=== PATIENT | female | born 1995 | race Caucasian/White ===

== ENCOUNTER → 2025-02-21 10:24 | Outpatient (BNVA) | payer BC, SELFPAY | PROVIDERS: Visit Provider Internal Medicine Rheumatology | DX: M54.50 Low back pain, unspecified (principal); M06.00 Rheumatoid arthritis without rheumatoid factor, unspecified site; M79.672 Pain in left foot; M79.671 Pain in right foot; M47.896 Other spondylosis, lumbar region | CPT/HCPCS: 36415; 72100; 73630; 80076; 82085; 82306; 82550; 82565; 85025; 85651; 86140; 86200; 86431; 86480; 86704; 86803; 87340 ==

== ENCOUNTER → 2025-02-22 | Outpatient (BNVA) | payer BC, SELFPAY | PROVIDERS: Visit Provider Internal Medicine Rheumatology | DX: M06.00 Rheumatoid arthritis without rheumatoid factor, unspecified site (principal) | CPT/HCPCS: 83520 ==

== ENCOUNTER 2025-03-23 11:16 | Outpatient (CLI) | payer BC, SELFPAY ==
[2025-03-23 11:57] LABS: Hematocrit 38.9 % (36-47); Hemoglobin 13.20 g/dL (11.27-16.99); Mean Corpuscular HGB Conc 33.9 g/dL (30-55); Mean Corpuscular Hemoglobin 30.8 pg (27-33); Mean Corpuscular Volume 90.9 fl (85-98); Nucleated Red Blood Cells % 0 %; Platelet Count 247 10^3/cmm (157-399); Red Blood Count 4.28 10^6/uL (3.85-5.65); White Blood Count 5.67 10^3/uL (3.29-11.43)
[2025-03-23 12:19] LABS: Alanine Aminotransferase 16 U/L (0-33); Albumin Level 4.3 g/dL (3.5-5.2); Alkaline Phosphatase 46 U/L (35-105); Aspartate Amino Transferase 17 U/L (0-32); Globulin 3.1 g/dL (1.3-4.6); Total Protein 7.4 g/dL (6.6-8.7)
== END 2025-03-23 11:17 | disposition home or self-care (01) ==
LOC: LAB 11:17
PROVIDERS: PCP Internal Medicine Gastroenterology; Visit Provider Internal Medicine Rheumatology
DX: Z79.899 Other long term (current) drug therapy (principal)
CPT/HCPCS: 36415; 80076; 82565; 85025; 85651; 86140

== ENCOUNTER 2025-04-27 10:33 | Outpatient (CLI) | payer BC, MEDICAID, SELFPAY ==
--- NOTE | 2025-04-27 10:37 | XR_ITS ---
WS: [email or web address] XR hand LT min 3V* [id number] REASON FOR EXAM: M25.50 - Pain in unspecified joint FINDINGS: No fracture or focal bone lesion. No periosteal reaction or bone erosion. Joint spaces of the fingers and hand are intact and well preserved. XR/XR hand LT min 3V* [id number] IMPRESSION: No significant bone or joint abnormality.
--- NOTE | 2025-04-27 10:37 | XR_ITS ---
WS: [email or web address] XR wrist LT min 3V* [id number] REASON FOR EXAM: M25.50 - Pain in unspecified joint FINDINGS: No fracture or focal bone lesion. No bone erosion. Joint spaces of the wrist are intact and well preserved. Normal carpal bone alignment. XR/XR wrist LT min 3V* [id number] IMPRESSION: No significant bone or joint abnormality.
--- NOTE | 2025-04-27 10:37 | XR_ITS ---
WS: [email or web address] XR ankle LT min 3V* [id number] REASON FOR EXAM: M25.50 - Pain in unspecified joint FINDINGS: No fracture or focal bone lesion. The joint spaces of the ankle are intact and well preserved. XR/XR ankle LT min 3V* [id number] IMPRESSION: No significant bone or joint abnormality.
--- NOTE | 2025-04-27 10:37 | XR_ITS ---
WS: [email or web address] XR hand RT min 3V* [id number] REASON FOR EXAM: M25.50 - Pain in unspecified joint FINDINGS: No fracture or focal bone lesion. No periosteal reaction or bone erosion. Joint spaces of the hand and fingers are intact and well preserved. XR/XR hand RT min 3V* [id number] IMPRESSION: No significant bone or joint abnormality.
--- NOTE | 2025-04-27 10:37 | XR_ITS ---
WS: [email or web address] XR wrist RT min 3V* [id number] REASON FOR EXAM: M25.50 - Pain in unspecified joint FINDINGS: No fracture or focal bone lesion. No bone erosion. Joint spaces of the wrist are intact and well preserved. Normal carpal bone alignment. XR/XR wrist RT min 3V* [id number] IMPRESSION: No significant bone or joint abnormality.
--- NOTE | 2025-04-27 11:00 | USR_ITS ---
PROCEDURE INFORMATION: Exam: US Soft Tissue Head and Neck, TI-RADS Exam date and time: 04/27/2025 10:50 AM Age: 29 years old Clinical indication: Condition or Disease; Thyroid disorder; Other: nodule; Additional Info: thyroid nodule, PLEASE INCLUDE TIRADS TECHNIQUE: Imaging protocol: Real-time ultrasound scan of the neck with image documentation. Exam focused on the thyroid. COMPARISON: No relevant prior studies available. FINDINGS: Right thyroid lobe: Not enlarged. 4.5 x 1.1 x 1.5 cm. Left thyroid lobe: Not enlarged. 4.2 x 1.3 x 1.5 cm. Isthmus: Not thickened. 2 mm. Thyroid nodule 1 Size: 0.8 x 0.9 x 1.1 cm Thyroid nodule 1 Location: Right lobe, mid to lower pole Thyroid nodule 1 Composition: Solid Thyroid nodule 1 Echogenicity: Hypoechoic Thyroid nodule 1 Shape: Taller than wide Thyroid nodule 1 Margins: Ill-defined Thyroid nodule 1 Echogenic foci: None Thyroid nodule 1 Points: 5 Thyroid nodule 2 Size: 0.7 x 0.5 x 0.7 cm Thyroid nodule 2 Location: Left lobe, mid to upper pole posteriorly Thyroid nodule 2 Composition: Cystic Thyroid nodule 2 Echogenicity: Anechoic Thyroid nodule 2 Shape: Wider than tall Thyroid nodule 2 Margins: Well-defined, smooth Thyroid nodule 2 Echogenic foci: None Thyroid nodule 2 Points: 0 Lymph nodes: No enlarged nodes. US/US thyroid [id number] IMPRESSION: Right mid to lower pole nodule, not well defined. By TI-RADS criteria, this is highly suspicious. Given size greater than 1 cm, FNA is recommended.
== END 2025-04-27 10:34 | disposition home or self-care (01) ==
LOC: RAD 10:35
PROVIDERS: PCP Internal Medicine Gastroenterology; Visit Provider Internal Medicine
DX: E07.9 Disorder of thyroid, unspecified (principal); E04.1 Nontoxic single thyroid nodule; M25.50 Pain in unspecified joint
CPT/HCPCS: 73110; 73130; 73610; 76536

== ENCOUNTER 2025-06-04 10:06 | Outpatient (CLI) | payer BC, MEDICAID, SELFPAY ==
[2025-06-04 10:42] LABS: Hematocrit 39.4 % (36-47); Hemoglobin 13.10 g/dL (11.27-16.99); Mean Corpuscular HGB Conc 33.2 g/dL (30-55); Mean Corpuscular Hemoglobin 30.7 pg (27-33); Mean Corpuscular Volume 92.3 fl (85-98); Nucleated Red Blood Cells % 0 %; Platelet Count 273 10^3/cmm (157-399); Red Blood Count 4.27 10^6/uL (3.85-5.65); White Blood Count 6.29 10^3/uL (3.29-11.43)
[2025-06-04 11:04] LABS: Alanine Aminotransferase 19 U/L (0-33); Albumin Level 4.7 g/dL (3.5-5.2); Alkaline Phosphatase 40 U/L (35-105); Aspartate Amino Transferase 17 U/L (0-32); Globulin 2.6 g/dL (1.3-4.6); Total Protein 7.3 g/dL (6.6-8.7)
== END 2025-06-04 10:07 | disposition home or self-care (01) ==
LOC: LAB 10:08
PROVIDERS: PCP Internal Medicine Gastroenterology; Visit Provider Internal Medicine Rheumatology
DX: Z79.899 Other long term (current) drug therapy (principal); M06.041 Rheumatoid arthritis without rheumatoid factor, right hand; M06.042 Rheumatoid arthritis without rheumatoid factor, left hand
CPT/HCPCS: 36415; 80076; 82565; 85025; 85651; 86140